=== PATIENT | male | born 1980 | race Caucasian/White ===

== ENCOUNTER 2018-04-12 01:44 | Emergency (ER) | payer BC ==
--- NOTE | 2018-04-12 01:48 | EDM.PDOC ---
ED HPI GENERAL MEDICAL PROBLEM - General Chief Complaint: ENT Problem Stated Complaint: sore throat Time Seen by Provider: 04/12/18 01:47 Source of Information: Reports: Patient - History of Present Illness INITIAL COMMENTS - FREE TEXT/NARRATIVE: HISTORY AND PHYSICAL: History of present illness: [patient present with sore throat since saturday able to speak clearly , nad, no stridor, no muffled voice drooling or trismus ] Review of systems: As per history of present illness and below otherwise all systems reviewed and negative. Past medical history: As per history of present illness and as reviewed below otherwise noncontributory. Surgical history: As per history of present illness and as reviewed below otherwise noncontributory. Social history: No reported history of drug or alcohol abuse. Family history: As per history of present illness and as reviewed below otherwise noncontributory. Physical exam: HEENT: Atraumatic, normocephalic, pupils reactive, negative for conjunctival pallor or scleral icterus, mucous membranes moist, neck supple, nontender, trachea midline.moderate swelling and likely abcess noted Lungs: Clear to auscultation, breath sounds equal bilaterally, chest nontender. Heart: S1S2, regular, negative for clicks, rubs, or JVD. Abdomen: Soft, nondistended, nontender. Negative for masses or hepatosplenomegaly. Negative for costovertebral tenderness. Pelvis: Stable nontender. Genitourinary: Deferred. Rectal: Deferred. Extremities: Atraumatic, negative for cords or calf pain. Neurovascular unremarkable. Neuro: Awake, alert, oriented. Cranial nerves II through XII unremarkable. Cerebellum unremarkable. Motor and sensory unremarkable throughout. Exam nonfocal. Diagnostics: [cbc, cmp ua strep influenza blood cx x 2 ] Therapeutics: [NS vancomycin 1 g cleocin 300mg iv ms 2 mg IV decadron 10mg IV ] Impression: b/l peritonsillar abscess ] Definitive disposition and diagnosis as appropriate pending reevaluation and review of above. throat Pain Score (Numeric/FACES): 9 - Related Data Allergies Allergy/AdvReac Type Severity Reaction Status Date / Time Penicillins Allergy Hives Verified 04/12/18 01:53 Home Meds: Home Meds . [No Known Home Meds] 02/11/18 [History] Past Medical History - Past Health History Medical/Surgical History: Denies Medical/Surgical History - Infectious Disease History Infectious Disease History: Reports: None Social & Family History - Family History Family Medical History: Noncontributory - Caffeine Use Caffeine Use: Reports: Coffee ED ROS GENERAL - Review of Systems Review Of Systems: See Below ED EXAM, GENERAL - Physical Exam Exam: See Below Course - Vital Signs Last Recorded V/S: Last Vital Signs Temp 98.9 F 04/12/18 04:20 Pulse 96 04/12/18 04:20 Resp 18 04/12/18 04:20 BP 136/79 04/12/18 04:20 Pulse Ox 97 04/12/18 04:20 - Orders/Labs/Meds Orders: Active Orders 24 hr Category Date Time Status CULTURE BLOOD [] Stat Lab 04/12/18 02:40 Received CULTURE BLOOD [] Stat Lab 04/12/18 02:45 Received CULTURE STREP A CONFIRMATION [] Stat Lab 04/12/18 01:55 Results STREP SCRN A RAPID W CULT CONF [] Stat Lab 04/12/18 01:55 Results Clindamycin Phosphate [Cleocin] 300 mg Med 04/12/18 04:06 Active Sodium Chloride 0.9% [Normal Saline] 50 ml IV ONETIME Clindamycin Phosphate in D5W [Cleocin in D5W] 300 mg Med 04/12/18 04:11 Active Premix Bag 1 bag IV ONETIME Sodium Chloride 0.9% [Normal Saline] 1,000 ml Med 04/12/18 04:30 Active IV STAT Vancomycin [Vancocin] 1 gm Med 04/12/18 04:06 Active Sodium Chloride 0.9% [Normal Saline] 250 ml IV ONETIME Blood Culture x2 Reflex Set [OM.PC] Stat Oth 04/12/18 02:30 Ordered Medication Orders Clindamycin Phosphate 300 mg/ (Sodium Chloride) 52 mls @ 100 mls/hr IV ONETIME ONE Stop: 04/12/18 04:37 Last Admin: 04/12/18 04:17 Dose: Not Given Vancomycin HCl 1 gm/ Sodium (Chloride) 250 mls @ 250 mls/hr IV ONETIME ONE Stop: 04/12/18 05:05 Last Admin: 04/12/18 04:16 Dose: 250 mls/hr Clindamycin Phosphate 300 mg/ (Premix) 50 mls @ 150 mls/hr IV ONETIME ONE Stop: 04/12/18 04:30 Sodium Chloride (Normal Saline) 1,000 mls @ 125 mls/hr IV STAT LIU Last Admin: 04/12/18 04:24 Dose: 125 mls/hr Labs: Laboratory Tests 04/12/18 04/12/18 04/12/18 Range/Units 02:30 02:40 02:40 WBC 16.89 H (4.0-11.0) K/uL RBC 4.84 (4.50-5.90) M/uL Hgb 14.0 (13.0-17.0) g/dL Hct 42.8 (38.0-50.0) % MCV 88.4 (80.0-98.0) fL MCH 28.9 (27.0-32.0) pg MCHC 32.7 (31.0-37.0) g/dL RDW Std Deviation 40.8 (28.0-62.0) fl RDW Coeff of Geo 13 (11.0-15.0) % Plt Count 256 (150-400) K/uL MPV 9.90 (7.40-12.00) fL Neut % (Auto) 84.6 H (48.0-80.0) % Lymph % (Auto) 7.2 L (16.0-40.0) % [place] % (Auto) 7.7 (0.0-15.0) % Eos % (Auto) 0.4 (0.0-7.0) % Baso % (Auto) 0.1 (0.0-1.5) % Neut # (Auto) 14.3 H (1.4-5.7) K/uL Lymph # (Auto) 1.2 (0.6-2.4) K/uL [place] # (Auto) 1.3 H (0.0-0.8) K/uL Eos # (Auto) 0.1 (0.0-0.7) K/uL Baso # (Auto) 0.0 (0.0-0.1) K/uL Sodium 135 L (136-148) mmol/L Potassium 4.4 (3.5-5.1) mmol/L Chloride 100 (98-107) mmol/L Carbon Dioxide 29.5 (21.0-32.0) mmol/L BUN 15 (7.0-18.0) mg/dL Creatinine 0.9 (0.8-1.3) mg/dL Est Cr Clr Drug Dosing 114.91 mL/min Estimated GFR (MDRD) > 60.0 ml/min Glucose 118 H (74-106) mg/dL Calcium 9.2 (8.5-10.1) mg/dL Total Bilirubin 0.6 (0.2-1.0) mg/dL AST 17 (15-37) IU/L ALT 18 (14-63) IU/L Alkaline Phosphatase 64 (46-116) U/L Total Protein 7.9 (6.4-8.2) g/dL Albumin 3.6 (3.4-5.0) g/dL Globulin 4.3 H (2.6-4.0) g/dL Albumin/Globulin Ratio 0.8 L (0.9-1.6) Urine Color YELLOW Urine Appearance CLEAR Urine pH 5.5 (5.0-8.0) Ur Specific [place] >= 1.030 (1.001-1.035) Urine Protein NEGATIVE (NEGATIVE) mg/dL Urine Glucose (UA) NEGATIVE (NEGATIVE) mg/dL Urine Ketones 40 H (NEGATIVE) mg/dL Urine Occult Blood NEGATIVE (NEGATIVE) Urine Nitrite NEGATIVE (NEGATIVE) Urine Bilirubin NEGATIVE (NEGATIVE) Urine Urobilinogen 0.2 (<2.0) EU/dL Ur Leukocyte Esterase NEGATIVE (NEGATIVE) Meds: Medications Generic Name Dose Route Start Last Admin Trade Name Freq PRN Reason Stop Dose Admin Clindamycin Phosphate 300 mg/ 52 mls @ 100 mls/hr 04/12/18 04:06 04/12/18 04: 17 Sodium Chloride IV 04/12/18 04:37 Not Given ONETIME ONE Vancomycin HCl 1 gm/ Sodium 250 mls @ 250 mls/hr 04/12/18 04:06 04/12/18 04: 16 Chloride IV 04/12/18 05:05 250 mls/hr ONETIME ONE Administration Clindamycin Phosphate 300 mg/ 50 mls @ 150 mls/hr 04/12/18 04:11 Premix IV 04/12/18 04:30 ONETIME ONE Sodium Chloride 1,000 mls @ 125 mls/hr 04/12/18 04:30 04/12/18 04:24 Normal Saline IV 125 mls/hr STAT LIU Administration Discontinued Medications Generic Name Dose Route Start Last Admin Trade Name Reginald PRN Reason Stop Dose Admin Sodium Chloride 1,000 mls @ 999 mls/hr 04/12/18 02:30 04/12/18 02:42 Normal Saline IV 04/12/18 03:30 999 mls/hr STAT ONE Administration Clindamycin Phosphate Confirm 04/12/18 04:10 04/12/18 04:16 Cleocin In D5w Administered 04/12/18 04:11 Not Given Dose 50 mls @ as directed IV .STK-MED ONE Iopamidol 100 ml 04/12/18 03:31 04/12/18 03:52 Isovue-370 (76%) IVPUSH 04/12/18 03:32 100 ml ONETIME ONE Administration Morphine Sulfate 2 mg 04/12/18 04:23 04/12/18 04:27 Morphine IVPUSH 04/12/18 04:24 2 mg ONETIME ONE Administration Departure - Departure Time of Disposition: 04:30 Disposition: DC/Tfer to Acute Hospital 02 Condition: Fair Clinical Impression: Peritonsillar abscess - Discharge Information Referrals: PCP,None [Primary Care Provider] - Forms: ED Department Discharge - My Orders Last 24 Hours: My Active Orders 04/12/18 01:55 CULTURE STREP A CONFIRMATION [RM] Stat STREP SCRN A RAPID W CULT CONF [RM] Stat 04/12/18 02:30 Blood Culture x2 Reflex Set [OM.PC] Stat 04/12/18 02:40 CULTURE BLOOD [BC] Stat 04/12/18 02:45 CULTURE BLOOD [BC] Stat 04/12/18 04:06 Clindamycin Phosphate [Cleocin] 300 mg Sodium Chloride 0.9% [Normal Saline] 50 ml IV ONETIME Vancomycin [Vancocin] 1 gm Sodium Chloride 0.9% [Normal Saline] 250 ml IV ONETIME 04/12/18 04:11 Clindamycin Phosphate in D5W [Cleocin in D5W] 300 mg Premix Bag 1 bag IV ONETIME 04/12/18 04:30 Sodium Chloride 0.9% [Normal Saline] 1,000 ml IV STAT - Assessment/Plan Last 24 Hours: My Active Orders 04/12/18 01:55 CULTURE STREP A CONFIRMATION [RM] Stat STREP SCRN A RAPID W CULT CONF [RM] Stat 04/12/18 02:30 Blood Culture x2 Reflex Set [OM.PC] Stat 04/12/18 02:40 CULTURE BLOOD [BC] Stat 04/12/18 02:45 CULTURE BLOOD [BC] Stat 04/12/18 04:06 Clindamycin Phosphate [Cleocin] 300 mg Sodium Chloride 0.9% [Normal Saline] 50 ml IV ONETIME Vancomycin [Vancocin] 1 gm Sodium Chloride 0.9% [Normal Saline] 250 ml IV ONETIME 04/12/18 04:11 Clindamycin Phosphate in D5W [Cleocin in D5W] 300 mg Premix Bag 1 bag IV ONETIME 04/12/18 04:30 Sodium Chloride 0.9% [Normal Saline] 1,000 ml IV STAT
[2018-04-12] MEDS ORDERED: Sodium Chloride 0.9% 1,000 ML IV ONE (02:30)
[2018-04-12 03:22] LABS: CHLORIDE,CL 100 mmol/L (98-107); SODIUM,NA 135 mmol/L (136-148)
[2018-04-12] MEDS ORDERED: Iopamidol 755 Mg/ML 100 ML Bottle IVPUSH ONE (03:31)
[2018-04-12] MEDS ORDERED: Clindamycin Phosphate in D5W 50 ML IV ONE (04:10)
[2018-04-12] MEDS ORDERED: Clindamycin Phosphate in D5W 300 MG in Premix Bag 1 BAG IV ONE ×2 (04:11)
[2018-04-12] MEDS ORDERED: Morphine 2 MG/ML Syringe IVPUSH ONE (04:23)
--- NOTE | 2018-04-12 04:24 | CT ---
INDICATION: Pain and swelling TECHNIQUE: CT soft tissue of the neck was acquired with 100 cc Isovue 370 intravenous contrast. COMPARISON: None FINDINGS: The skullbase is unremarkable. Note is made of mucosal thickening within the paranasal sinuses and the orbits are within normal limits. Parotid and submandibular glands are unremarkable. There is prominent bilateral tonsillar swelling which is causing moderate to severe narrowing of the oropharynx with some fluid in the oropharynx. There is a rim enhancing hypodense collection within the right tonsil measuring 16 x 8 x 10 millimeters and at the left tonsil measuring 18 x 8 x 17 millimeters. There is mild adjacent fat stranding which extends into the submandibular regions. Prominent enlarged jugular lymph nodes, largest measuring 14 millimeters at level 2 on the left, presumed reactive. Lung apices are unremarkable. Thyroid gland unremarkable. Jugular veins widely patent bilaterally. IMPRESSION: Prominent tonsillar enlargement causing moderate to severe narrowing of the oropharynx with bilateral peritonsillar abscesses measuring up to 16 millimeters on the right and 18 millimeters on the left. Please note that all CT scans at this facility use dose modulation, iterative reconstruction, and/or weight-based dosing when appropriate to reduce radiation dose to as low as reasonably achievable. Dictated by Yahir Mcpherson MD @ Apr 12 2018 4:16AM Signed by Dr. Yahir Mcpherson @ Apr 12 2018 4:21AM
[2018-04-12] MEDS ORDERED: Sodium Chloride 0.9% 1,000 ML IV SCH (04:30)
[2018-04-12] MEDS ORDERED: Dexamethasone 10 MG/ML SDV IVPUSH ONE (04:52)
== END 2018-04-12 05:20 ==
LOC: MW.ED 01:44
DX: J36 Peritonsillar abscess (principal); Z88.0 Allergy status to penicillin
CPT/HCPCS: 36415; 70491; 80053; 81003; 85025; 87040; 87081; 87804; 87880; 96361; 96365; 96368; 96375; 99285; J1100; J2270; J3370; J3490; J7040; J7050; Q9967; 99283

== ENCOUNTER 2020-09-08 09:37 | Inpatient (IN) | payer BC ==
[2020-09-08] MEDS ORDERED: Sodium Chloride 0.9% 2.5 ML Syringe FLUSH PRN ×2 (10:10→13:00)
[2020-09-08] MEDS ORDERED: Sodium Chloride 0.9% 10 ML Syringe FLUSH PRN (10:10)
[2020-09-08] MEDS ORDERED: cefTRIAXone 1 GM in Premix Bag 1 BAG IV ONE (10:10)
--- NOTE | 2020-09-08 10:16 | EDM.PDOC ---
ED HPI GENERAL MEDICAL PROBLEM - General Chief Complaint: Skin Complaint Stated Complaint: POISON ENA Time Seen by Provider: 09/08/20 09:55 Source of Information: Reports: Patient History Limitations: Reports: No Limitations - History of Present Illness INITIAL COMMENTS - FREE TEXT/NARRATIVE: HISTORY AND PHYSICAL: History of present illness: Patient is a 40-year-old male who presents to the emergency room with complaints of a rash to his lower extremities and torso. Approximately 3 weeks ago he was hiking in the [facility] with his brother in [place]. A few days after his brother had called him stating that he had a rash to his lower legs and believed it was poison ena. Patient also noted a rash to his left posterior calf and right knee, which since has progressively gotten worse. The rash has now spread from the right kneecap to the majority of the anterior right leg from mid knight to groin with a honey crusted lesion to the kneecap. He has been using OTC Benadryl and He did go to [facility] on 09[facility]. He states that they gave him a shot of steroid and encouraged him to continue using Benadryl and [id number] hydrocortisone cream. After receiving the injection he feels that the rash has now spread to his anterior and posterior trunk, diffuse. The rash spares his feet, groin/haresh-area, glutes and bilateral arms. Patient denies any fever, chills, headache, change in vision, syncope or near syncope. Denies any chest pain, back pain, shortness of breath or cough. Denies any abdominal pain, nausea, vomiting, diarrhea, constipation or dysuria. Has not noted any blood in urine or stool. Patient has been eating and drinking appropriately. Review of systems: As per history of present illness and below otherwise all systems reviewed and negative. Past medical history: As per history of present illness and as reviewed below otherwise noncontributory. Surgical history: As per history of present illness and as reviewed below otherwise noncontributory. Social history: See social history for further information Family history: As per history of present illness and as reviewed below otherwise noncontributory. Physical exam: General: Well developed and well nourished. Alert and orientated x 3. Nontoxic in appearance and in no acute distress. Vital signs are stable and have been reviewed by me. Nursing notes were reviewed. HEENT: Atraumatic, normocephalic, pupils equal and reactive bilaterally, negative for conjunctival pallor or scleral icterus, mucous membranes moist, TMs normal bilaterally, throat clear, neck supple, nontender, trachea midline. No drooling or trismus noted. No meningeal signs. No hot potato voice noted. Lungs: Clear to auscultation bilaterally. No wheezes, rales, or rhonchi. Chest nontender. Normal work of breathing, no accessory muscles used. Heart: S1S2, regular rate and rhythm without overt murmur, gallops, or rubs. No JVD. No peripheral edema Abdomen: Soft, nondistended, nontender. Normoactive bowel sounds. Negative for masses or costovertebral tenderness. Skin: Diffuse pin point erythema rash noted to trunk; scattered. Primary lesion right knee; fluid filled blister with honey crusted drainage around site. Surrounding erythema with diffuse rash to right anterior knee going down the knight (stops at ankle) and goes up to inner groin. Erythematic with diffuse rash to left posterior calf. Upper extremities are intact, warm, dry. No lesions or rashes noted. Hematologic: No petechiae or purpra. Mucosa appropriate color and normal nail bed color and refill. Extremities: Atraumatic, moves all extremities per self without difficulty or deficits. His left leg is slightly larger than the left, negative for cords or calf pain bilaterally. Neurovascular unremarkable. Neuro: Awake, alert, oriented. Cranial nerves II through XII unremarkable. Cerebellum unremarkable. Motor and sensory unremarkable throughout. Exam nonfocal. Psychiatric: Mood and affect are appropriate. Normal thought process. Answering questions appropriately. Notes: *This patient was seen and evaluated during the 2019 SARS-CoV-2 novel coronavirus pandemic period. Community viral transmission is ongoing at time of this encounter and the emergency department is operating under pandemic response procedures. Patient is a 40-year-old male who presents to the emergency room with concerns of poison ena rash x3 weeks. Patient states initially started on his legs but has progressively gotten worse. States the area is itchy, denies any pain. Was seen at the walk-in clinic on 09/05/2020 and given a steroid shot. Shortly after the rash is now spread to his trunk. The longevity of the rash is unusual also the pattern now spreading to his abdomen is peculiar. Dr Kerns was involved in this case and assisted with plan of care. We will do basic lab work and an ultrasound of the right leg as it does appear to be semi-swollen. Lab work is within normal limits. Venous US shows a normal ultrasound of the right lower extremity veins. With patient's presentation, length of symptoms and physical exam - I feel patient will benefit with IV abx and further care/management for possible superimposed skin infection. Patient is agreeable to plan of care. Consulted Dr Allen who is agreeable to keeping patient for further care and management. I have talked with the patient about today's findings, in addition to providing specific details for plan of care. Reassessment at the time of disposition demonstrates that the patient is in no acute distress. Diagnostics: CBC, CMP, UA, RPR, COVID, INR, BC x 2, Lactate Therapeutics: IV fluids, Benadryl, Solu-Medrol, Vancomycin, Rocephin Impression: Cellulitis Contact dermatitis Plan: Inpatient admission to Med/Surg Definitive disposition and diagnosis as appropriate pending reevaluation and review of above. Body Pain Score (Numeric/FACES): 8 - Related Data Allergies Allergy/AdvReac Type Severity Reaction Status Date / Time Penicillins Allergy Hives Verified 04/12/18 01:53 Home Meds: Home Meds . [No Known Home Meds] 02/11/18 [History] Past Medical History - Past Health History Medical/Surgical History: Denies Medical/Surgical History Musculoskeletal History: Reports: None - Infectious Disease History Infectious Disease History: Reports: None - Past Surgical History Musculoskeletal Surgical History: Reports: Other (See Below) Other Musculoskeletal Surgeries/Procedures:: right hand Social & Family History - Family History Family Medical History: No Pertinent Family History Hematologic: Reports: None - Tobacco Use Tobacco Use Status *Q: Never Tobacco User - Caffeine Use Caffeine Use: Reports: None - Recreational Drug Use Recreational Drug Use: No ED ROS GENERAL - Review of Systems Review Of Systems: Comprehensive ROS is negative, except as noted in HPI. ED EXAM, SKIN/RASH Exam: See Below (See dictation) Course - Vital Signs Last Recorded V/S: Last Vital Signs Temp 97.2 F 09/08/20 10:09 Pulse 82 09/08/20 10:09 Resp 18 09/08/20 10:09 BP 150/104 H 09/08/20 10:09 Pulse Ox 96 09/08/20 10:09 - Orders/Labs/Meds Orders: Active Orders 24 hr Category Date Time Status CULTURE BLOOD [BC] Stat Lab 09/08/20 10:25 Received CULTURE BLOOD [BC] Stat Lab 09/08/20 10:52 Received RPR (SYPHILIS SERO) W/ RFLX [REF] Stat Lab 09/08/20 10:25 Received UA RFX NETTA AND CULT IF INDIC [URIN] Stat Lab 09/08/20 10:10 Ordered Vancomycin 1 gm Med 09/08/20 10:15 Active Sodium Chloride 0.9% [Normal Saline (AdvBag)] 250 ml IV Q12H Blood Culture x2 Reflex Set [OM.PC] Stat Oth 09/08/20 10:10 Ordered Medication Orders Acetaminophen (Acetaminophen 325 Mg Tab) 650 mg PO Q4H PRN PRN Reason: Pain (Mild 1-3)/fever Diphenhydramine HCl (Diphenhydramine 25 Mg Cap) 25 mg PO Q4H PRN PRN Reason: Itching Hydrocortisone (Hydrocortisone 1% Crm 30 Gm Tube) 0 gm TOP Q12HR PRN PRN Reason: Itching Vancomycin HCl 1 gm/ Sodium (Chloride) 250 mls @ 166 mls/hr IV Q12H LIU Last Admin: 09/08/20 11:00 Dose: 166 mls/hr Documented by: JOSEPH Ceftriaxone Sodium/Dextrose 1 (gm/ Premix) 50 mls @ 100 mls/hr IV Q24H LIU Ondansetron HCl (Ondansetron 4 Mg/2 Ml Sdv) 4 mg IVPUSH Q4H PRN PRN Reason: Nausea Sodium Chloride (Sodium Chloride 0.9% 2.5 Ml Syringe) 2.5 ml FLUSH ASDIRECTED PRN PRN Reason: Keep Vein Open Vancomycin HCl (Pharmacy To Dose - Vancomycin) 1 dose .XX ASDIRECTED [facility] Labs: Laboratory Tests 09/08/20 09/08/20 09/08/20 Range/Units 10:25 10:25 10:25 WBC 9.34 (4.0-11.0) K/uL RBC 5.27 (4.50-5.90) M/uL Hgb 15.2 (13.0-17.0) g/dL Hct 45.4 (38.0-50.0) % MCV 86.1 (80.0-98.0) fL MCH 28.8 (27.0-32.0) pg MCHC 33.5 (31.0-37.0) g/dL RDW Std Deviation 40.8 (28.0-62.0) fl RDW Coeff of Geo 13 (11.0-15.0) % Plt Count 308 (150-400) K/uL MPV 9.50 (7.40-12.00) fL Neut % (Auto) 69.5 (48.0-80.0) % Lymph % (Auto) 16.4 (16.0-40.0) % [place] % (Auto) 6.3 (0.0-15.0) % Eos % (Auto) 7.5 H (0.0-7.0) % Baso % (Auto) 0.3 (0.0-1.5) % Neut # (Auto) 6.5 H (1.4-5.7) K/uL Lymph # (Auto) 1.5 (0.6-2.4) K/uL [place] # (Auto) 0.6 (0.0-0.8) K/uL Eos # (Auto) 0.7 (0.0-0.7) K/uL Baso # (Auto) 0.0 (0.0-0.1) K/uL Nucleated RBC % 0.0 /100WBC Nucleated RBCs # 0 K/uL INR 1.11 Sodium 138 (136-148) mmol/L Potassium 4.5 (3.5-5.1) mmol/L Chloride 103 (98-107) mmol/L Carbon Dioxide 31.4 (21.0-32.0) mmol/L BUN 13 (7.0-18.0) mg/dL Creatinine 1.2 (0.8-1.3) mg/dL Est Cr Clr Drug Dosing 84.49 mL/min Estimated GFR (MDRD) > 60.0 ml/min Glucose 101 (74-106) mg/dL Lactic Acid (0.4-2.0) mmol/L Calcium 8.9 (8.5-10.1) mg/dL Total Bilirubin 0.4 (0.2-1.0) mg/dL AST 23 (15-37) IU/L ALT 30 (14-63) IU/L Alkaline Phosphatase 72 (46-116) U/L Total Protein 7.3 (6.4-8.2) g/dL Albumin 3.6 (3.4-5.0) g/dL Globulin 3.7 (2.6-4.0) g/dL Albumin/Globulin Ratio 1.0 (0.9-1.6) SARS-CoV-2 RNA (GABRIELA) (NEGATIVE) 09/08/20 09/08/20 Range/Units 10:25 11:25 WBC (4.0-11.0) K/uL RBC (4.50-5.90) M/uL Hgb (13.0-17.0) g/dL Hct (38.0-50.0) % MCV (80.0-98.0) fL MCH (27.0-32.0) pg MCHC (31.0-37.0) g/dL RDW Std Deviation (28.0-62.0) fl RDW Coeff of Geo (11.0-15.0) % Plt Count (150-400) K/uL MPV (7.40-12.00) fL Neut % (Auto) (48.0-80.0) % Lymph % (Auto) (16.0-40.0) % [place] % (Auto) (0.0-15.0) % Eos % (Auto) (0.0-7.0) % Baso % (Auto) (0.0-1.5) % Neut # (Auto) (1.4-5.7) K/uL Lymph # (Auto) (0.6-2.4) K/uL [place] # (Auto) (0.0-0.8) K/uL Eos # (Auto) (0.0-0.7) K/uL Baso # (Auto) (0.0-0.1) K/uL Nucleated RBC % /100WBC Nucleated RBCs # K/uL INR Sodium (136-148) mmol/L Potassium (3.5-5.1) mmol/L Chloride (98-107) mmol/L Carbon Dioxide (21.0-32.0) mmol/L BUN (7.0-18.0) mg/dL Creatinine (0.8-1.3) mg/dL Est Cr Clr Drug Dosing mL/min Estimated GFR (MDRD) ml/min Glucose (74-106) mg/dL Lactic Acid 1.0 (0.4-2.0) mmol/L Calcium (8.5-10.1) mg/dL Total Bilirubin (0.2-1.0) mg/dL AST (15-37) IU/L ALT (14-63) IU/L Alkaline Phosphatase (46-116) U/L Total Protein (6.4-8.2) g/dL Albumin (3.4-5.0) g/dL Globulin (2.6-4.0) g/dL Albumin/Globulin Ratio (0.9-1.6) SARS-CoV-2 RNA (GABRIELA) NEGATIVE (NEGATIVE) Meds: Medications Generic Name Dose Route Start Last Admin Trade Name Freq PRN Reason Stop Dose Admin Acetaminophen 650 mg 09/08/20 12:58 Acetaminophen 325 Mg Tab PO Q4H PRN Pain (Mild 1-3)/fever Diphenhydramine HCl 25 mg 09/08/20 12:58 Diphenhydramine 25 Mg Cap PO Q4H PRN Itching Hydrocortisone 0 gm 09/08/20 13:30 Hydrocortisone 1% Crm 30 Gm Tube TOP Q12HR PRN Itching Vancomycin HCl 1 gm/ Sodium 250 mls @ 166 mls/hr 09/08/20 10:15 09/08/20 11:00 Chloride IV 166 mls/hr Q12H LIU Administration Ceftriaxone Sodium/Dextrose 1 50 mls @ 100 mls/hr 09/09/20 10:00 gm/ Premix IV Q24H LIU Ondansetron HCl 4 mg 09/08/20 12:58 Ondansetron 4 Mg/2 Ml Sdv IVPUSH Q4H PRN Nausea Sodium Chloride 2.5 ml 09/08/20 13:00 Sodium Chloride 0.9% 2.5 Ml Syringe FLUSH ASDIRECTED PRN Keep Vein Open Vancomycin HCl 1 dose 09/08/20 13:15 Pharmacy To Dose - Vancomycin .XX ASDIRECTED LIU Discontinued Medications Generic Name Dose Route Start Last Admin Trade Name Freq PRN Reason Stop Dose Admin Diphenhydramine HCl 50 mg 09/08/20 10:20 09/08/20 11:01 Diphenhydramine 50 Mg/Ml Sdv IVPUSH 09/08/20 10:21 50 mg ONETIME ONE Administration Ceftriaxone Sodium/Dextrose 1 50 mls @ 100 mls/hr 09/08/20 10:10 09/08/20 10:59 gm/ Premix IV 09/08/20 10:39 100 mls/hr ONETIME ONE Administration Methylprednisolone Sodium Succinate 125 mg 09/08/20 10:20 09/08/20 11:01 Methylprednisolone Sodium Succinate 125 Mg/2 Ml Sdv IVPUSH 09/08/20 10:21 125 mg ONETIME ONE Administration Sodium Chloride 10 ml 09/08/20 10:10 09/08/20 11:06 Sodium Chloride 0.9% 10 Ml Syringe FLUSH 10 ml ASDIRECTED PRN Administration Keep Vein Open Sodium Chloride 2.5 ml 09/08/20 10:10 09/08/20 11:05 Sodium Chloride 0.9% 2.5 Ml Syringe FLUSH 2.5 ml ASDIRECTED PRN Administration Keep Vein Open Departure - Departure Time of Disposition: 13:37 Disposition: Admitted As Inpatient 66 Clinical Impression: Contact dermatitis and eczema due to plant Cellulitis Qualifiers: Site of cellulitis: extremity Site of cellulitis of extremity: lower extremity Laterality: right Qualified Code(s): L03.115 - Cellulitis of right lower limb - Discharge Information Sepsis Event Note (ED) - Evaluation Sepsis Screening Result: No Definite Risk - Focused Exam Vital Signs: Vital Signs Temp Pulse Resp BP Pulse Ox 09/08/20 10:09 97.2 F 82 18 150/104 H 96 - My Orders Last 24 Hours: My Active Orders 09/08/20 10:10 UA RFX NETTA AND CULT IF INDIC [URIN] Stat Blood Culture x2 Reflex Set [OM.PC] Stat 09/08/20 10:15 Vancomycin 1 gm Sodium Chloride 0.9% [Normal Saline (AdvBag)] 250 ml IV Q12H 09/08/20 10:25 CULTURE BLOOD [BC] Stat RPR (SYPHILIS SERO) W/ RFLX [REF] Stat 09/08/20 10:52 CULTURE BLOOD [BC] Stat - Assessment/Plan Last 24 Hours: My Active Orders 09/08/20 10:10 UA RFX NETTA AND CULT IF INDIC [URIN] Stat Blood Culture x2 Reflex Set [OM.PC] Stat 09/08/20 10:15 Vancomycin 1 gm Sodium Chloride 0.9% [Normal Saline (AdvBag)] 250 ml IV Q12H 09/08/20 10:25 CULTURE BLOOD [BC] Stat RPR (SYPHILIS SERO) W/ RFLX [REF] Stat 09/08/20 10:52 CULTURE BLOOD [BC] Stat
[2020-09-08] MEDS ORDERED: methylPREDNISolone Sodium Succinate 125 MG/2 ML SDV IVPUSH ONE (10:20)
[2020-09-08] MEDS ORDERED: diphenhydrAMINE 50 MG/ML SDV IVPUSH ONE (10:20)
[2020-09-08 10:56] LABS: BLOOD UREA NITROGEN,BUN 13 mg/dL (7.0-18.0); CARBON DIOXIDE,CO2 31.4 mmol/L (21.0-32.0); CHLORIDE,CL 103 mmol/L (98-107); GLUCOSE RANDOM 101 mg/dL (74-106); POTASSIUM,K 4.5 mmol/L (3.5-5.1); SODIUM,NA 138 mmol/L (136-148)
--- NOTE | 2020-09-08 11:21 | US ---
INDICATION: rash rt leg, blistering on knee, swelling TECHNIQUE: Ultrasound venous duplex right lower extremity. COMPARISON: None. FINDINGS: The right common femoral, superficial femoral, deep femoral, popliteal, posterior tibial, and greater saphenous veins are fully compressible with normal waveforms. IMPRESSION: Normal ultrasound of the right lower extremity veins. Dictated by: Kevin Francois MD @ 09/08/2020 11:20:30 (Electronically Signed)
[2020-09-08] MEDS ORDERED: Ondansetron 4 MG/2 ML SDV IVPUSH PRN (12:58)
[2020-09-08] MEDS ORDERED: Acetaminophen 325 MG Tab PO PRN (12:58)
[2020-09-08] MEDS ORDERED: diphenhydrAMINE 25 MG Cap PO PRN (12:58)
--- NOTE | 2020-09-08 13:16 | PCM.HP.2 ---
H&P History of Present Illness - General Date of Service: 09/08/20 Admit Problem/Dx: Admission Diagnosis/Problem Admission Diagnosis/Problem Cellulitis - History of Present Illness Initial Comments - Free Text/Narative: This 40-year-old male with little significant past medical history presented to the ER with complaints of skin rash on his lower extremities that extends up to his abdomen. He reports that he was hiking in the [facility] to weeks ago approximately with his brother and their families. He reports that him and his brother were climbing a river bank to obtain shoe that was thrown and may have come in contact with poison jenny or stinging tj. He reports that a few days after this his brother called him stating that he had noticed a rash to his lower legs and believed it would be from poison jenny. At that time the patient then noticed that he did have a left rash on his left posterior calf and right knee which has since progressively worsened. He reports that the ri ght knee has spread to cover the entire knee along with proximal and distal spreading with erythema. Denies any tick bite, insect or animal bite within these areas. He reports that he has been taking [id number] Benadryl and that he did go to the walk-in clinic on 09/05/2020 where he was given order steroid injection with encouragement to continue Benadryl and topical hydrocortisone. He reports after this the rash spread to his trunk posterior and anteriorly but sparing groin and genitals. He reports that he has a couple erythematous spots located on the tops of his feet that are quite itchy. He reports that the area on his right knee has slowly blistered and crusted over. He denies any systemic symptoms such as fevers chills myalgias rigors no neck pain. He denies any back pain shortness of breath palpitations or cough. He denies any abdominal pain nausea vomiting or diarrhea. He denies any black or bloody bowel movements. He denies ever having a thing like this in the past. Denies any history of allergies that he is aware of besides penicillins. He reports that he chews half a tin of tobacco daily no smoking tobacco, rare social alcohol use and no recreational drug use. 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 In the ER no leukocytosis noted. Eosinophil percentage elevated 7.5. INR 1.11. BMP within normal limits glucose normal Covid swab negative. Venous Doppler of right lower extremity obtained which is negative. In the ER he was treated with Solu-Medrol Benadryl and IV fluids. He was also treated with Rocephin and vancomycin for possible superimposed bacterial infection. Patient to be admitted with suspected cellulitis secondary to superimposed bacterial infection from contact dermatitis likely from a plant. Body Pain Score (Numeric/FACES): 8 - Related Data Allergies/Adverse Reactions: Allergies Allergy/AdvReac Type Severity Reaction Status Date / Time Penicillins Allergy Hives Verified 04/12/18 01:53 Home Medications: Home Meds . [No Known Home Meds] 02/11/18 [History] Past Medical History - Past Health History Medical/Surgical History: Denies Medical/Surgical History Musculoskeletal History: Reports: None - Infectious Disease History Infectious Disease History: Reports: None - Past Surgical History Musculoskeletal Surgical History: Reports: Other (See Below) Other Musculoskeletal Surgeries/Procedures:: right hand Social & Family History - Family History Family Medical History: No Pertinent Family History (Patient adopted has no available information regarding family history.) Hematologic: Reports: None - Tobacco Use Tobacco Use Status *Q: Never Tobacco User - Caffeine Use Caffeine Use: Reports: None - Recreational Drug Use Recreational Drug Use: No H&P Review of Systems - Review of Systems: Review Of Systems: See Below General: Reports: No Symptoms. Denies: Fever, Chills, Malaise HEENT: Reports: No Symptoms. Denies: Headaches, Sinus Congestion, Sore Throat, Vertigo Pulmonary: Reports: No Symptoms. Denies: Shortness of Breath, Wheezing Cardiovascular: Reports: No Symptoms. Denies: Chest Pain, Edema Gastrointestinal: Reports: No Symptoms. Denies: Abdominal Pain, Constipation, Diarrhea, Nausea, Vomiting Genitourinary: Reports: No Symptoms. Denies: Dysuria, Frequency, Burning Musculoskeletal: Reports: No Symptoms Skin: Reports: Pruritis, Rash, Erythema, Urticaria Psychiatric: Reports: No Symptoms Neurological: Reports: No Symptoms Hematologic/Lymphatic: Reports: No Symptoms Immunologic: Reports: No Symptoms Exam - Exam Exam: See Below - Vital Signs Vital Signs: Last Vital Signs Temp 97.2 F 09/08/20 10:09 Pulse 82 09/08/20 10:09 Resp 18 09/08/20 10:09 BP 150/104 H 09/08/20 10:09 Pulse Ox 96 09/08/20 10:09 Weight: 113.398 kg - Exam General: Alert, Oriented, Cooperative HEENT: Conjunctiva Clear, Mucosa Moist & [place], Posterior Pharynx Clear Neck: Supple, Trachea Midline. No: Lymphadenopathy Lungs: Clear to Auscultation, Normal Respiratory Effort Cardiovascular: Regular Rate, Regular Rhythm GI/Abdominal Exam: Normal Bowel Sounds, Soft, Non-Tender Back Exam: Normal Inspection, Full Range of Motion Skin: Rash (Rash noted to anterior posterior trunk blanchable macules of varying sizes noted. This does extend down to right and left leg right greater than left. Sparing groin and genitals. Left leg has scattered macules noted with no blistering does have large plaque-like rash noted to posterior knee. ), Other (Right knee has significant amount of macules and located on patella patient has significant amount of pustules noted that are draining clear yellow fluid with significant bone of crusting. No purulence noted no fluctuance noted. Patient able to move joint but has tightness in skin, not joint pain) Neuro Extensive - Mental Status: Alert, Oriented x3, Normal Mood/Affect Neuro Extensive - Motor, Sensory, Reflexes: CN II-XII Intact Psychiatric: Alert, Normal Affect, Normal Mood - Patient Data Lab Results Last 24 hrs: Laboratory Results - last 24 hr 09/08/20 09/08/20 09/08/20 Range/Units 10:25 10:25 10:25 WBC 9.34 (4.0-11.0) K/uL RBC 5.27 (4.50-5.90) M/uL Hgb 15.2 (13.0-17.0) g/dL Hct 45.4 (38.0-50.0) % MCV 86.1 (80.0-98.0) fL MCH 28.8 (27.0-32.0) pg MCHC 33.5 (31.0-37.0) g/dL RDW Std Deviation 40.8 (28.0-62.0) fl RDW Coeff of Geo 13 (11.0-15.0) % Plt Count 308 (150-400) K/uL MPV 9.50 (7.40-12.00) fL Neut % (Auto) 69.5 (48.0-80.0) % Lymph % (Auto) 16.4 (16.0-40.0) % [place] % (Auto) 6.3 (0.0-15.0) % Eos % (Auto) 7.5 H (0.0-7.0) % Baso % (Auto) 0.3 (0.0-1.5) % Neut # (Auto) 6.5 H (1.4-5.7) K/uL Lymph # (Auto) 1.5 (0.6-2.4) K/uL [place] # (Auto) 0.6 (0.0-0.8) K/uL Eos # (Auto) 0.7 (0.0-0.7) K/uL Baso # (Auto) 0.0 (0.0-0.1) K/uL Nucleated RBC % 0.0 /100WBC Nucleated RBCs # 0 K/uL INR 1.11 Sodium 138 (136-148) mmol/L Potassium 4.5 (3.5-5.1) mmol/L Chloride 103 (98-107) mmol/L Carbon Dioxide 31.4 (21.0-32.0) mmol/L BUN 13 (7.0-18.0) mg/dL Creatinine 1.2 (0.8-1.3) mg/dL Est Cr Clr Drug Dosing 84.49 mL/min Estimated GFR (MDRD) > 60.0 ml/min Glucose 101 (74-106) mg/dL Lactic Acid (0.4-2.0) mmol/L Calcium 8.9 (8.5-10.1) mg/dL Total Bilirubin 0.4 (0.2-1.0) mg/dL AST 23 (15-37) IU/L ALT 30 (14-63) IU/L Alkaline Phosphatase 72 (46-116) U/L Total Protein 7.3 (6.4-8.2) g/dL Albumin 3.6 (3.4-5.0) g/dL Globulin 3.7 (2.6-4.0) g/dL Albumin/Globulin Ratio 1.0 (0.9-1.6) SARS-CoV-2 RNA (GABRIELA) (NEGATIVE) 09/08/20 09/08/20 Range/Units 10:25 11:25 WBC (4.0-11.0) K/uL RBC (4.50-5.90) M/uL Hgb (13.0-17.0) g/dL Hct (38.0-50.0) % MCV (80.0-98.0) fL MCH (27.0-32.0) pg MCHC (31.0-37.0) g/dL RDW Std Deviation (28.0-62.0) fl RDW Coeff of Geo (11.0-15.0) % Plt Count (150-400) K/uL MPV (7.40-12.00) fL Neut % (Auto) (48.0-80.0) % Lymph % (Auto) (16.0-40.0) % [place] % (Auto) (0.0-15.0) % Eos % (Auto) (0.0-7.0) % Baso % (Auto) (0.0-1.5) % Neut # (Auto) (1.4-5.7) K/uL Lymph # (Auto) (0.6-2.4) K/uL [place] # (Auto) (0.0-0.8) K/uL Eos # (Auto) (0.0-0.7) K/uL Baso # (Auto) (0.0-0.1) K/uL Nucleated RBC % /100WBC Nucleated RBCs # K/uL INR Sodium (136-148) mmol/L Potassium (3.5-5.1) mmol/L Chloride (98-107) mmol/L Carbon Dioxide (21.0-32.0) mmol/L BUN (7.0-18.0) mg/dL Creatinine (0.8-1.3) mg/dL Est Cr Clr Drug Dosing mL/min Estimated GFR (MDRD) ml/min Glucose (74-106) mg/dL Lactic Acid 1.0 (0.4-2.0) mmol/L Calcium (8.5-10.1) mg/dL Total Bilirubin (0.2-1.0) mg/dL AST (15-37) IU/L ALT (14-63) IU/L Alkaline Phosphatase (46-116) U/L Total Protein (6.4-8.2) g/dL Albumin (3.4-5.0) g/dL Globulin (2.6-4.0) g/dL Albumin/Globulin Ratio (0.9-1.6) SARS-CoV-2 RNA (GABRIELA) NEGATIVE (NEGATIVE) Result Diagrams: 09/08/20 10:25 09/08/20 10:25 Sepsis Event Note - Evaluation Sepsis Screening Result: No Definite Risk - Focused Exam Vital Signs: Vital Signs Temp Pulse Resp BP Pulse Ox 09/08/20 10:09 97.2 F 82 18 150/104 H 96 - Problem List (1) Contact dermatitis and eczema due to plant SNOMED Code(s): 292267136 ICD Code: L24.7 - IRRITANT CONTACT DERMATITIS DUE TO PLANTS, EXCEPT FOOD Status: Acute Current Visit: Yes (2) Cellulitis SNOMED Code(s): 675258202 ICD Code: L03.90 - CELLULITIS, UNSPECIFIED Status: Acute Current Visit: Yes (3) Tobacco abuse SNOMED Code(s): 542964141 ICD Code: Z72.0 - TOBACCO USE Status: Chronic Current Visit: Yes (4) Obesity SNOMED Code(s): 330827757, 075713221 ICD Code: E66.9 - OBESITY, UNSPECIFIED Status: Chronic Current Visit: Yes Problem List Initiated/Reviewed/Updated: Yes Orders Last 24hrs: Active Orders 24 hr Category Date Time Status Admission Status [Patient Status] [ADT] Stat ADT 09/08/20 11:33 Active Antiembolic Devices [RC] PER UNIT ROUTINE Care 09/08/20 13:00 Ordered Intake and Output [RC] QSHIFT Care 09/08/20 12:58 Ordered Oxygen Therapy [RC] PRN Care 09/08/20 12:58 Ordered Up With Assistance [RC] ASDIRECTED Care 09/08/20 12:58 Ordered VTE/DVT Education [RC] PER UNIT ROUTINE Care 09/08/20 12:58 Ordered Vital Signs [RC] Q4H Care 09/08/20 12:58 Ordered Regular Diet [DIET] Diet 09/08/20 Lunch Ordered BASIC METABOLIC PANEL,BMP [CHEM] AM Lab 09/09/20 05:11 Ordered CBC WITH AUTO DIFF [HEME] AM Lab 09/09/20 05:11 Ordered CULTURE BLOOD [BC] Stat Lab 09/08/20 10:25 Received CULTURE BLOOD [BC] Stat Lab 09/08/20 10:52 Received TANISHA PREP [MYC] Routine Lab 09/08/20 13:06 Ordered MISCELLANEOUS CULT [MREF] Routine Lab 09/08/20 13:06 Ordered RPR (SYPHILIS SERO) W/ RFLX [REF] Stat Lab 09/08/20 10:25 Received UA RFX NETTA AND CULT IF INDIC [URIN] Stat Lab 09/08/20 10:10 Ordered Acetaminophen [TylenoL] Med 09/08/20 12:58 Ordered 650 mg PO Q4H PRN Ondansetron [Zofran] Med 09/08/20 12:58 Ordered 4 mg IVPUSH Q4H PRN Pharmacy to Dose - Vancomycin Med 09/08/20 13:15 Ordered 1 dose .XX ASDIRECTED Sodium Chloride 0.9% [Saline Flush] Med 09/08/20 12:58 Ordered 2.5 ml FLUSH ASDIRECTED PRN Vancomycin 1 gm Med 09/08/20 10:15 Active Sodium Chloride 0.9% [Normal Saline (AdvBag)] 250 ml IV Q12H cefTRIAXone [Rocephin in Dextrose,Iso-Osm 1 GM/50 ML] 1 Med 09/09/20 10:00 Ordered gm Premix Bag 1 bag IV Q24H diphenhydrAMINE [Benadryl] Med 09/08/20 12:58 Ordered 25 mg PO Q4H PRN Blood Culture x2 Reflex Set [OM.PC] Stat Oth 09/08/20 10:10 Ordered Saline Lock Insert [OM.PC] Routine Oth 09/08/20 12:58 Ordered Sequential Compression Device [OM.PC] Per Unit Routine Oth 09/08/20 12:59 Ordered Resuscitation Status Routine Resus Stat 09/08/20 12:58 Ordered Medication Orders Acetaminophen (Acetaminophen 325 Mg Tab) 650 mg PO Q4H PRN PRN Reason: Pain (Mild 1-3)/fever Diphenhydramine HCl (Diphenhydramine 25 Mg Cap) 25 mg PO Q4H PRN PRN Reason: Itching Vancomycin HCl 1 gm/ Sodium (Chloride) 250 mls @ 166 mls/hr IV Q12H [facility] Last Admin: 09/08/20 11:00 Dose: 166 mls/hr Documented by: JOSEPH Ceftriaxone Sodium/Dextrose 1 (gm/ Premix) 50 mls @ 100 mls/hr IV Q24H [facility] Ondansetron HCl (Ondansetron 4 Mg/2 Ml Sdv) 4 mg IVPUSH Q4H PRN PRN Reason: Nausea Sodium Chloride (Sodium Chloride 0.9% 2.5 Ml Syringe) 2.5 ml FLUSH ASDIRECTED PRN PRN Reason: Keep Vein Open Vancomycin HCl (Pharmacy To Dose - Vancomycin) 1 dose .XX ASDIRECTED PENDING SALE TO [facility] Assessment/Plan Comment:: This 40-year-old male admitted with likely plant contact dermatitis with suspected superimposed cellulitis 1. Plant contact dermatitis with suspected superimposed cellulitis -Continue vancomycin and Rocephin -We will obtain culture and ATNISHA scraping -Benadryl as needed - hydrocortisone cream as needed itching -Cool compress as needed -Monitor in a.m. VTE prophylaxis: SCDs and ambulation CODE STATUS: Full code Dispo 1 to 2 days.
[2020-09-08] MEDS ORDERED: Hydrocortisone 1% Crm 30 GM Tube TOP PRN (13:30)
[2020-09-08] MEDS: VANCOmycin 1.75 GM/350 ML 1.75 GM in Premix Bag 1 BAG IV SCH (23:44)
[2020-09-09 06:22] LABS: BLOOD UREA NITROGEN,BUN 13 mg/dL (7.0-18.0); CARBON DIOXIDE,CO2 27.8 mmol/L (21.0-32.0); CHLORIDE,CL 103 mmol/L (98-107); GLUCOSE RANDOM 126 mg/dL (74-106); POTASSIUM,K 4.4 mmol/L (3.5-5.1); SODIUM,NA 139 mmol/L (136-148)
[2020-09-09] MEDS ORDERED: methylPREDNISolone Sodium Succinate 125 MG/2 ML SDV IVPUSH ONE (09:00)
--- NOTE | 2020-09-09 09:00 | PCM.PN ---
- General Info Date of Service: 09/09/20 Admission Dx/Problem (Free Text): Admission Diagnosis/Problem Admission Diagnosis/Problem Cellulitis Subjective Update: Feeling well this morning, erythema less bright today, itching continues to distal parts of rash. L posterior knee rash improved and less itching. Rash to abdomen also improved, but continues to itch. NO chest pain, SOB or fevers. No joint pain. Functional Status: Reports: Pain Controlled, Tolerating Diet, Ambulating, Urinating - Review of Systems General: Reports: No Symptoms. Denies: Weakness, Fatigue HEENT: Reports: No Symptoms. Denies: Headaches, Sore Throat Pulmonary: Reports: No Symptoms. Denies: Shortness of Breath Cardiovascular: Reports: No Symptoms. Denies: Chest Pain Gastrointestinal: Reports: No Symptoms. Denies: Abdominal Pain, Nausea, Vomiting Genitourinary: Reports: No Symptoms Skin: Reports: Rash Neurological: Reports: No Symptoms Psychiatric: Reports: No Symptoms - Patient Data Vitals - Most Recent: Last Vital Signs Temp 96.9 F 09/09/20 07:51 Pulse 78 09/09/20 07:51 Resp 20 09/09/20 07:51 BP 133/71 09/09/20 07:51 Pulse Ox 95 09/09/20 07:51 Weight - Most Recent: 116.029 kg I&O - Last 24 Hours: Intake & Output 09/08/20 09/09/20 09/09/20 22:59 06:59 14:59 Intake Total 1191 1410 Output Total 301 2000 Balance 890 -590 Lab Results Last 24 Hours: Laboratory Results - last 24 hr 09/08/20 09/08/20 09/08/20 Range/Units 10:25 10:25 10:25 WBC 9.34 (4.0-11.0) K/uL RBC 5.27 (4.50-5.90) M/uL Hgb 15.2 (13.0-17.0) g/dL Hct 45.4 (38.0-50.0) % MCV 86.1 (80.0-98.0) fL MCH 28.8 (27.0-32.0) pg MCHC 33.5 (31.0-37.0) g/dL RDW Std Deviation 40.8 (28.0-62.0) fl RDW Coeff of Geo 13 (11.0-15.0) % Plt Count 308 (150-400) K/uL MPV 9.50 (7.40-12.00) fL Neut % (Auto) 69.5 (48.0-80.0) % Lymph % (Auto) 16.4 (16.0-40.0) % [place] % (Auto) 6.3 (0.0-15.0) % Eos % (Auto) 7.5 H (0.0-7.0) % Baso % (Auto) 0.3 (0.0-1.5) % Neut # (Auto) 6.5 H (1.4-5.7) K/uL Lymph # (Auto) 1.5 (0.6-2.4) K/uL [place] # (Auto) 0.6 (0.0-0.8) K/uL Eos # (Auto) 0.7 (0.0-0.7) K/uL Baso # (Auto) 0.0 (0.0-0.1) K/uL Nucleated RBC % 0.0 /100WBC Nucleated RBCs # 0 K/uL INR 1.11 Sodium 138 (136-148) mmol/L Potassium 4.5 (3.5-5.1) mmol/L Chloride 103 (98-107) mmol/L Carbon Dioxide 31.4 (21.0-32.0) mmol/L BUN 13 (7.0-18.0) mg/dL Creatinine 1.2 (0.8-1.3) mg/dL Est Cr Clr Drug Dosing 84.49 mL/min Estimated GFR (MDRD) > 60.0 ml/min Glucose 101 (74-106) mg/dL Lactic Acid (0.4-2.0) mmol/L Calcium 8.9 (8.5-10.1) mg/dL Total Bilirubin 0.4 (0.2-1.0) mg/dL AST 23 (15-37) IU/L ALT 30 (14-63) IU/L Alkaline Phosphatase 72 (46-116) U/L Total Protein 7.3 (6.4-8.2) g/dL Albumin 3.6 (3.4-5.0) g/dL Globulin 3.7 (2.6-4.0) g/dL Albumin/Globulin Ratio 1.0 (0.9-1.6) Urine Color Urine Appearance Urine pH (5.0-8.0) Ur Specific [place] (1.001-1.035) Urine Protein (NEGATIVE) mg/dL Urine Glucose (UA) (NEGATIVE) mg/dL Urine Ketones (NEGATIVE) mg/dL Urine Occult Blood (NEGATIVE) Urine Nitrite (NEGATIVE) Urine Bilirubin (NEGATIVE) Urine Urobilinogen (<2.0) EU/dL Ur Leukocyte Esterase (NEGATIVE) SARS-CoV-2 RNA (GABRIELA) (NEGATIVE) 09/08/20 09/08/20 09/08/20 Range/Units 10:25 11:25 13:50 WBC (4.0-11.0) K/uL RBC (4.50-5.90) M/uL Hgb (13.0-17.0) g/dL Hct (38.0-50.0) % MCV (80.0-98.0) fL MCH (27.0-32.0) pg MCHC (31.0-37.0) g/dL RDW Std Deviation (28.0-62.0) fl RDW Coeff of Geo (11.0-15.0) % Plt Count (150-400) K/uL MPV (7.40-12.00) fL Neut % (Auto) (48.0-80.0) % Lymph % (Auto) (16.0-40.0) % [place] % (Auto) (0.0-15.0) % Eos % (Auto) (0.0-7.0) % Baso % (Auto) (0.0-1.5) % Neut # (Auto) (1.4-5.7) K/uL Lymph # (Auto) (0.6-2.4) K/uL [place] # (Auto) (0.0-0.8) K/uL Eos # (Auto) (0.0-0.7) K/uL Baso # (Auto) (0.0-0.1) K/uL Nucleated RBC % /100WBC Nucleated RBCs # K/uL INR Sodium (136-148) mmol/L Potassium (3.5-5.1) mmol/L Chloride (98-107) mmol/L Carbon Dioxide (21.0-32.0) mmol/L BUN (7.0-18.0) mg/dL Creatinine (0.8-1.3) mg/dL Est Cr Clr Drug Dosing mL/min Estimated GFR (MDRD) ml/min Glucose (74-106) mg/dL Lactic Acid 1.0 (0.4-2.0) mmol/L Calcium (8.5-10.1) mg/dL Total Bilirubin (0.2-1.0) mg/dL AST (15-37) IU/L ALT (14-63) IU/L Alkaline Phosphatase (46-116) U/L Total Protein (6.4-8.2) g/dL Albumin (3.4-5.0) g/dL Globulin (2.6-4.0) g/dL Albumin/Globulin Ratio (0.9-1.6) Urine Color YELLOW Urine Appearance CLEAR Urine pH 6.0 (5.0-8.0) Ur Specific [place] 1.025 (1.001-1.035) Urine Protein NEGATIVE (NEGATIVE) mg/dL Urine Glucose (UA) NEGATIVE (NEGATIVE) mg/dL Urine Ketones NEGATIVE (NEGATIVE) mg/dL Urine Occult Blood NEGATIVE (NEGATIVE) Urine Nitrite NEGATIVE (NEGATIVE) Urine Bilirubin NEGATIVE (NEGATIVE) Urine Urobilinogen 0.2 (<2.0) EU/dL Ur Leukocyte Esterase NEGATIVE (NEGATIVE) SARS-CoV-2 RNA (GABRIELA) NEGATIVE (NEGATIVE) 09/09/20 09/09/20 Range/Units 05:30 05:30 WBC 13.16 H (4.0-11.0) K/uL RBC 4.88 (4.50-5.90) M/uL Hgb 13.8 (13.0-17.0) g/dL Hct 41.9 (38.0-50.0) % MCV 85.9 (80.0-98.0) fL MCH 28.3 (27.0-32.0) pg MCHC 32.9 (31.0-37.0) g/dL RDW Std Deviation 40.1 (28.0-62.0) fl RDW Coeff of Geo 13 (11.0-15.0) % Plt Count 336 (150-400) K/uL MPV 9.70 (7.40-12.00) fL Neut % (Auto) 87.3 H (48.0-80.0) % Lymph % (Auto) 8.4 L (16.0-40.0) % [place] % (Auto) 4.0 (0.0-15.0) % Eos % (Auto) 0.2 (0.0-7.0) % Baso % (Auto) 0.1 (0.0-1.5) % Neut # (Auto) 11.5 H (1.4-5.7) K/uL Lymph # (Auto) 1.1 (0.6-2.4) K/uL [place] # (Auto) 0.5 (0.0-0.8) K/uL Eos # (Auto) 0.0 (0.0-0.7) K/uL Baso # (Auto) 0.0 (0.0-0.1) K/uL Nucleated RBC % 0.0 /100WBC Nucleated RBCs # 0 K/uL INR Sodium 139 (136-148) mmol/L Potassium 4.4 (3.5-5.1) mmol/L Chloride 103 (98-107) mmol/L Carbon Dioxide 27.8 (21.0-32.0) mmol/L BUN 13 (7.0-18.0) mg/dL Creatinine 0.9 (0.8-1.3) mg/dL Est Cr Clr Drug Dosing 116.20 mL/min Estimated GFR (MDRD) > 60.0 ml/min Glucose 126 H (74-106) mg/dL Lactic Acid (0.4-2.0) mmol/L Calcium 8.4 L (8.5-10.1) mg/dL Total Bilirubin (0.2-1.0) mg/dL AST (15-37) IU/L ALT (14-63) IU/L Alkaline Phosphatase (46-116) U/L Total Protein (6.4-8.2) g/dL Albumin (3.4-5.0) g/dL Globulin (2.6-4.0) g/dL Albumin/Globulin Ratio (0.9-1.6) Urine Color Urine Appearance Urine pH (5.0-8.0) Ur Specific [place] (1.001-1.035) Urine Protein (NEGATIVE) mg/dL Urine Glucose (UA) (NEGATIVE) mg/dL Urine Ketones (NEGATIVE) mg/dL Urine Occult Blood (NEGATIVE) Urine Nitrite (NEGATIVE) Urine Bilirubin (NEGATIVE) Urine Urobilinogen (<2.0) EU/dL Ur Leukocyte Esterase (NEGATIVE) SARS-CoV-2 RNA (GABRIELA) (NEGATIVE) Phani Results Last 24 Hours: Microbiology 09/08/20 13:10 TANISHA Preparation - Final Skin / Skin Scrapings - Knee, Right Med Orders - Current: Current Medications Acetaminophen (Acetaminophen 325 Mg Tab) 650 mg PO Q4H PRN PRN Reason: Pain (Mild 1-3)/fever Last Admin: 09/09/20 02:26 Dose: 650 mg Documented by: Diphenhydramine HCl (Diphenhydramine 25 Mg Cap) 25 mg PO Q4H PRN PRN Reason: Itching Last Admin: 09/09/20 02:28 Dose: 25 mg Documented by: Hydrocortisone (Hydrocortisone 1% Crm 30 Gm Tube) 0 gm TOP Q12HR PRN PRN Reason: Itching Last Admin: 09/08/20 14:42 Dose: 1 applic Documented by: Ceftriaxone Sodium/Dextrose 1 (gm/ Premix) 50 mls @ 100 mls/hr IV Q24H LIU Vancomycin HCl 1.75 gm/ Premix 350 mls @ 175 mls/hr IV Q12H LIU Last Admin: 09/08/20 23:44 Dose: 175 mls/hr Documented by: Ondansetron HCl (Ondansetron 4 Mg/2 Ml Sdv) 4 mg IVPUSH Q4H PRN PRN Reason: Nausea Sodium Chloride (Sodium Chloride 0.9% 2.5 Ml Syringe) 2.5 ml FLUSH ASDIRECTED PRN PRN Reason: Keep Vein Open Vancomycin HCl (Pharmacy To Dose - Vancomycin) 1 dose .XX ASDIRECTED LIU Discontinued Medications Diphenhydramine HCl (Diphenhydramine 50 Mg/Ml Sdv) 50 mg IVPUSH ONETIME ONE Stop: 09/08/20 10:21 Last Admin: 09/08/20 11:01 Dose: 50 mg Documented by: Ceftriaxone Sodium/Dextrose 1 (gm/ Premix) 50 mls @ 100 mls/hr IV ONETIME ONE Stop: 09/08/20 10:39 Last Admin: 09/08/20 10:59 Dose: 100 mls/hr Documented by: Vancomycin HCl 1 gm/ Sodium (Chloride) 250 mls @ 166 mls/hr IV Q12H LIU Last Admin: 09/08/20 11:00 Dose: 166 mls/hr Documented by: Methylprednisolone Sodium Succinate (Methylprednisolone Sodium Succinate 125 Mg/2 Ml Sdv) 125 mg IVPUSH ONETIME ONE Stop: 09/08/20 10:21 Last Admin: 09/08/20 11:01 Dose: 125 mg Documented by: Sodium Chloride (Sodium Chloride 0.9% 10 Ml Syringe) 10 ml FLUSH ASDIRECTED PRN PRN Reason: Keep Vein Open Last Admin: 09/08/20 11:06 Dose: 10 ml Documented by: Sodium Chloride (Sodium Chloride 0.9% 2.5 Ml Syringe) 2.5 ml FLUSH ASDIRECTED PRN PRN Reason: Keep Vein Open Last Admin: 09/08/20 11:05 Dose: 2.5 ml Documented by: - Exam General: Alert, Oriented, Cooperative, No Acute Distress Lungs: Clear to Auscultation, Normal Respiratory Effort Cardiovascular: Regular Rate, Regular Rhythm GI/Abdominal Exam: Normal Bowel Sounds, Soft, Non-Tender Extremities: Normal Inspection, Normal Range of Motion, Non-Tender, No Pedal Edema, Normal Capillary Refill Wound/Incisions: Drainage (yellow to clear drainage from vesicles on R knee.), Erythema Improving (to R and L knee. macular rash to trunk mildly improved. ) Neurological: No New Focal Deficit Psy/Mental Status: Alert, Normal Affect, Normal Mood - Patient Data Lab Results Last 24 hrs: Laboratory Results - last 24 hr 09/08/20 09/08/20 09/08/20 Range/Units 10:25 10:25 10:25 WBC 9.34 (4.0-11.0) K/uL RBC 5.27 (4.50-5.90) M/uL Hgb 15.2 (13.0-17.0) g/dL Hct 45.4 (38.0-50.0) % MCV 86.1 (80.0-98.0) fL MCH 28.8 (27.0-32.0) pg MCHC 33.5 (31.0-37.0) g/dL RDW Std Deviation 40.8 (28.0-62.0) fl RDW Coeff of Geo 13 (11.0-15.0) % Plt Count 308 (150-400) K/uL MPV 9.50 (7.40-12.00) fL Neut % (Auto) 69.5 (48.0-80.0) % Lymph % (Auto) 16.4 (16.0-40.0) % [place] % (Auto) 6.3 (0.0-15.0) % Eos % (Auto) 7.5 H (0.0-7.0) % Baso % (Auto) 0.3 (0.0-1.5) % Neut # (Auto) 6.5 H (1.4-5.7) K/uL Lymph # (Auto) 1.5 (0.6-2.4) K/uL [place] # (Auto) 0.6 (0.0-0.8) K/uL Eos # (Auto) 0.7 (0.0-0.7) K/uL Baso # (Auto) 0.0 (0.0-0.1) K/uL Nucleated RBC % 0.0 /100WBC Nucleated RBCs # 0 K/uL INR 1.11 Sodium 138 (136-148) mmol/L Potassium 4.5 (3.5-5.1) mmol/L Chloride 103 (98-107) mmol/L Carbon Dioxide 31.4 (21.0-32.0) mmol/L BUN 13 (7.0-18.0) mg/dL Creatinine 1.2 (0.8-1.3) mg/dL Est Cr Clr Drug Dosing 84.49 mL/min Estimated GFR (MDRD) > 60.0 ml/min Glucose 101 (74-106) mg/dL Lactic Acid (0.4-2.0) mmol/L Calcium 8.9 (8.5-10.1) mg/dL Total Bilirubin 0.4 (0.2-1.0) mg/dL AST 23 (15-37) IU/L ALT 30 (14-63) IU/L Alkaline Phosphatase 72 (46-116) U/L Total Protein 7.3 (6.4-8.2) g/dL Albumin 3.6 (3.4-5.0) g/dL Globulin 3.7 (2.6-4.0) g/dL Albumin/Globulin Ratio 1.0 (0.9-1.6) Urine Color Urine Appearance Urine pH (5.0-8.0) Ur Specific [place] (1.001-1.035) Urine Protein (NEGATIVE) mg/dL Urine Glucose (UA) (NEGATIVE) mg/dL Urine Ketones (NEGATIVE) mg/dL Urine Occult Blood (NEGATIVE) Urine Nitrite (NEGATIVE) Urine Bilirubin (NEGATIVE) Urine Urobilinogen (<2.0) EU/dL Ur Leukocyte Esterase (NEGATIVE) SARS-CoV-2 RNA (GABRIELA) (NEGATIVE) 09/08/20 09/08/20 09/08/20 Range/Units 10:25 11:25 13:50 WBC (4.0-11.0) K/uL RBC (4.50-5.90) M/uL Hgb (13.0-17.0) g/dL Hct (38.0-50.0) % MCV (80.0-98.0) fL MCH (27.0-32.0) pg MCHC (31.0-37.0) g/dL RDW Std Deviation (28.0-62.0) fl RDW Coeff of Geo (11.0-15.0) % Plt Count (150-400) K/uL MPV (7.40-12.00) fL Neut % (Auto) (48.0-80.0) % Lymph % (Auto) (16.0-40.0) % [place] % (Auto) (0.0-15.0) % Eos % (Auto) (0.0-7.0) % Baso % (Auto) (0.0-1.5) % Neut # (Auto) (1.4-5.7) K/uL Lymph # (Auto) (0.6-2.4) K/uL [place] # (Auto) (0.0-0.8) K/uL Eos # (Auto) (0.0-0.7) K/uL Baso # (Auto) (0.0-0.1) K/uL Nucleated RBC % /100WBC Nucleated RBCs # K/uL INR Sodium (136-148) mmol/L Potassium (3.5-5.1) mmol/L Chloride (98-107) mmol/L Carbon Dioxide (21.0-32.0) mmol/L BUN (7.0-18.0) mg/dL Creatinine (0.8-1.3) mg/dL Est Cr Clr Drug Dosing mL/min Estimated GFR (MDRD) ml/min Glucose (74-106) mg/dL Lactic Acid 1.0 (0.4-2.0) mmol/L Calcium (8.5-10.1) mg/dL Total Bilirubin (0.2-1.0) mg/dL AST (15-37) IU/L ALT (14-63) IU/L Alkaline Phosphatase (46-116) U/L Total Protein (6.4-8.2) g/dL Albumin (3.4-5.0) g/dL Globulin (2.6-4.0) g/dL Albumin/Globulin Ratio (0.9-1.6) Urine Color YELLOW Urine Appearance CLEAR Urine pH 6.0 (5.0-8.0) Ur Specific [place] 1.025 (1.001-1.035) Urine Protein NEGATIVE (NEGATIVE) mg/dL Urine Glucose (UA) NEGATIVE (NEGATIVE) mg/dL Urine Ketones NEGATIVE (NEGATIVE) mg/dL Urine Occult Blood NEGATIVE (NEGATIVE) Urine Nitrite NEGATIVE (NEGATIVE) Urine Bilirubin NEGATIVE (NEGATIVE) Urine Urobilinogen 0.2 (<2.0) EU/dL Ur Leukocyte Esterase NEGATIVE (NEGATIVE) SARS-CoV-2 RNA (GABRIELA) NEGATIVE (NEGATIVE) 09/09/20 09/09/20 Range/Units 05:30 05:30 WBC 13.16 H (4.0-11.0) K/uL RBC 4.88 (4.50-5.90) M/uL Hgb 13.8 (13.0-17.0) g/dL Hct 41.9 (38.0-50.0) % MCV 85.9 (80.0-98.0) fL MCH 28.3 (27.0-32.0) pg MCHC 32.9 (31.0-37.0) g/dL RDW Std Deviation 40.1 (28.0-62.0) fl RDW Coeff of Geo 13 (11.0-15.0) % Plt Count 336 (150-400) K/uL MPV 9.70 (7.40-12.00) fL Neut % (Auto) 87.3 H (48.0-80.0) % Lymph % (Auto) 8.4 L (16.0-40.0) % [place] % (Auto) 4.0 (0.0-15.0) % Eos % (Auto) 0.2 (0.0-7.0) % Baso % (Auto) 0.1 (0.0-1.5) % Neut # (Auto) 11.5 H (1.4-5.7) K/uL Lymph # (Auto) 1.1 (0.6-2.4) K/uL [place] # (Auto) 0.5 (0.0-0.8) K/uL Eos # (Auto) 0.0 (0.0-0.7) K/uL Baso # (Auto) 0.0 (0.0-0.1) K/uL Nucleated RBC % 0.0 /100WBC Nucleated RBCs # 0 K/uL INR Sodium 139 (136-148) mmol/L Potassium 4.4 (3.5-5.1) mmol/L Chloride 103 (98-107) mmol/L Carbon Dioxide 27.8 (21.0-32.0) mmol/L BUN 13 (7.0-18.0) mg/dL Creatinine 0.9 (0.8-1.3) mg/dL Est Cr Clr Drug Dosing 116.20 mL/min Estimated GFR (MDRD) > 60.0 ml/min Glucose 126 H (74-106) mg/dL Lactic Acid (0.4-2.0) mmol/L Calcium 8.4 L (8.5-10.1) mg/dL Total Bilirubin (0.2-1.0) mg/dL AST (15-37) IU/L ALT (14-63) IU/L Alkaline Phosphatase (46-116) U/L Total Protein (6.4-8.2) g/dL Albumin (3.4-5.0) g/dL Globulin (2.6-4.0) g/dL Albumin/Globulin Ratio (0.9-1.6) Urine Color Urine Appearance Urine pH (5.0-8.0) Ur Specific [place] (1.001-1.035) Urine Protein (NEGATIVE) mg/dL Urine Glucose (UA) (NEGATIVE) mg/dL Urine Ketones (NEGATIVE) mg/dL Urine Occult Blood (NEGATIVE) Urine Nitrite (NEGATIVE) Urine Bilirubin (NEGATIVE) Urine Urobilinogen (<2.0) EU/dL Ur Leukocyte Esterase (NEGATIVE) SARS-CoV-2 RNA (GABRIELA) (NEGATIVE) Result Diagrams: 09/09/20 05:30 09/09/20 05:30 Phani Results Last 24 hrs: Microbiology 09/08/20 13:10 TANISHA Preparation - Final Skin / Skin Scrapings - Knee, Right Sepsis Event Note - Evaluation Sepsis Screening Result: No Definite Risk - Focused Exam Vital Signs: Vital Signs Temp Pulse Resp BP Pulse Ox 09/09/20 07:51 96.9 F 78 20 133/71 95 09/09/20 05:00 98 F 78 18 121/64 96 09/08/20 23:42 97.4 F 76 18 129/62 96 - Problem List & Annotations (1) Contact dermatitis and eczema due to plant SNOMED Code(s): 260010313 Code(s): L24.7 - IRRITANT CONTACT DERMATITIS DUE TO PLANTS, EXCEPT FOOD Status: Acute Current Visit: Yes (2) Cellulitis SNOMED Code(s): 952076752 Code(s): L03.90 - CELLULITIS, UNSPECIFIED Status: Acute Current Visit: Yes Qualifiers: Site of cellulitis: extremity Site of cellulitis of extremity: lower extremity Laterality: right Qualified Code(s): L03.115 - Cellulitis of right lower limb (3) Tobacco abuse SNOMED Code(s): 235512658 Code(s): Z72.0 - TOBACCO USE Status: Chronic Current Visit: Yes (4) Obesity SNOMED Code(s): 856746573, 724588108 Code(s): E66.9 - OBESITY, UNSPECIFIED Status: Chronic Current Visit: Yes - Problem List Review Problem List Initiated/Reviewed/Updated: Yes - My Orders Last 24 Hours: My Active Orders 09/08/20 Lunch Regular Diet [DIET] 09/08/20 12:58 Intake and Output [RC] Q12H Oxygen Therapy [RC] PRN Up With Assistance [RC] ASDIRECTED VTE/DVT Education [RC] PER UNIT ROUTINE Vital Signs [RC] Q4H Acetaminophen [TylenoL] 650 mg PO Q4H PRN Ondansetron [Zofran] 4 mg IVPUSH Q4H PRN diphenhydrAMINE [Benadryl] 25 mg PO Q4H PRN Saline Lock Insert [OM.PC] Routine Resuscitation Status Routine 09/08/20 12:59 Sequential Compression Device [OM.PC] Per Unit Routine 09/08/20 13:00 Antiembolic Devices [RC] PER UNIT ROUTINE Sodium Chloride 0.9% [Saline Flush] 2.5 ml FLUSH ASDIRECTED PRN 09/08/20 13:10 MISCELLANEOUS CULT [MREF] Routine 09/08/20 13:15 Pharmacy to Dose - Vancomycin 1 dose .XX ASDIRECTED 09/08/20 13:30 Hydrocortisone [Hydrocortisone 1% Crm] See Dose Instructions TOP Q12HR PRN 09/08/20 23:00 VANCOmycin 1.75 GM/350 ML 1.75 gm Premix Bag 1 bag IV Q12H 09/09/20 09:00 methylPREDNISolone Sod Succ [Solu-MEDROL] 125 mg IVPUSH ONETIME ONE 09/09/20 10:00 cefTRIAXone [Rocephin in Dextrose,Iso-Osm 1 GM/50 ML] 1 gm Premix Bag 1 bag IV Q24H - Plan Plan:: This 40-year-old male admitted with likely plant contact dermatitis with suspected superimposed cellulitis 1. Plant contact dermatitis with suspected superimposed cellulitis -Continue vancomycin and Rocephin -TANISHA negative. Wound culture pending. BC negative x 1 -Benadryl as needed - hydrocortisone cream as needed itching -Cool compress as needed -Leukocytosis likely reactive to steroid dose. - WIll give another dose of steroids x 1 today, cellulitis less likely. VTE prophylaxis: SCDs and ambulation CODE STATUS: Full code Dispo 1 to 2 days.
[2020-09-09] MEDS: cefTRIAXone 1 GM in Premix Bag 1 BAG IV SCH (09:47)
[2020-09-09] MEDS: VANCOmycin 1.75 GM/350 ML 1.75 GM in Premix Bag 1 BAG IV SCH ×2 (10:44→22:59)
[2020-09-09] MEDS ORDERED: cefTRIAXone 1 GM in Premix Bag 1 BAG IV SCH (11:00)
[2020-09-10 06:57] LABS: BLOOD UREA NITROGEN,BUN 15 mg/dL (7.0-18.0); CARBON DIOXIDE,CO2 28.2 mmol/L (21.0-32.0); CHLORIDE,CL 104 mmol/L (98-107); GLUCOSE RANDOM 104 mg/dL (74-106); POTASSIUM,K 4.5 mmol/L (3.5-5.1); SODIUM,NA 139 mmol/L (136-148)
[2020-09-10] MEDS: cefTRIAXone 1 GM in Premix Bag 1 BAG IV SCH (10:22)
--- NOTE | 2020-09-10 13:50 | PCM.DCSUM1 ---
Discharge Summary - Hospital Course Free Text/Narrative:: 40-year-old male presented to the ER on 09-08-20 with complaints of skin rash on his lower extremities that extends up to his abdomen. He reports that he was hiking in the [facility] [place] to weeks ago approximately with his brother and their families. He reports that him and his brother were climbing a river bank to obtain shoe that was thrown and may have come in contact with poison jenny or stinging tj, both the patient and his brother began to have symptoms of a rash to his lower legs and believed it would be from poison jenny. Patient denied tick bite, insect or animal bite. Patient did go to the walk-in clinic on 09/05/2020 where he was given order steroid injection with encouragement to continue Benadryl and topical hydrocortisone. He reports after this the rash spread to his trunk posterior and anteriorly but sparing groin and genitals. At admission patient denied fevers, chills, myalgias rigors no neck pain, back pain, shortness of breath, palpitations or cough. He denies any abdominal pain nausea vomiting or diarrhea. He denies any black or bloody bowel movements. He denies ever having a thing like this in the past. Denies any history of allergies that he is aware of besides penicillins. In the ER no leukocytosis noted. Eosinophil percentage elevated 7.5. INR 1.11. BMP within normal limits glucose normal Covid swab negative. Venous Doppler of right lower extremity obtained which is negative. In the ER he was treated with Solu-Medrol Benadryl and IV fluids. He was also treated with Rocephin and vancomycin for possible superimposed bacterial infection. Patient to be admitted with suspected cellulitis secondary to superimposed bacterial infection from contact dermatitis likely from a plant. Patient was treated for suspected contact dermatitis with possible cellulitis. Patient was treated with vancomycin and Rocephin, Benadryl as needed, hydrocortisone cream topical for itching. Patient's TANISHA scraping came back negative. No organisms noted on Gram stain. Patient discharged home on doxycycline, Benadryl, hydrocortisone topical cream as needed for itching. Time of discharge patient was afebrile, denied fever, chills, denies any significant pain to his right lower extremity.. Patient sta lorrie his rash has been improving and is confident that he can manage his condition at home. - Discharge Data Discharge Date: 09/10/20 Discharge Disposition: Home, Self-Care 01 Condition: Stable - Referral to Home Health Primary Care Physician: PCP None - Patient Instructions Diet: Usual Diet as Tolerated Activity: As Tolerated Notify Provider of: Fever, Increased Pain, Swelling and Redness, Drainage Other/Special Instructions: REPORT ANY NEW PAIN, ITCHING, SKIN DISCOMFORT, FEVER, CHILLS TO PCP. FOR SEVERE PAIN, SWELLING, INCREASED REDNESS, REPORT TO THE ED. - Discharge Plan *PRESCRIPTION DRUG MONITORING PROGRAM REVIEWED*: Not Applicable *COPY OF PRESCRIPTION DRUG MONITORING REPORT IN PATIENT EBKA: Not Applicable Prescriptions/Med Rec: diphenhydrAMINE [Benadryl] 25 mg PO Q24H PRN #6 cap PRN Reason: Itching Doxycycline Hyclate 100 mg PO BID #14 capsule Hydrocortisone [Hydrocortisone 1% Crm] 28.4 gm TOP ASDIRECTED PRN #1 crm PRN Reason: Itching Home Medications: Home Meds Doxycycline Hyclate 100 mg PO BID #14 capsule 09/10/20 [Rx] Hydrocortisone [Hydrocortisone 1% Crm] 28.4 gm TOP ASDIRECTED PRN #1 crm 09/10/20 [Rx] diphenhydrAMINE [Benadryl] 25 mg PO Q24H PRN #6 cap 09/10/20 [Rx] Patient Handouts: Cellulitis, Adult, Atopic Dermatitis, Hydrocortisone skin cream, ointment, lotion, or solution, Rash, Adult, Diphenhydramine capsules or tablets, Doxycycline tablets or capsules Referrals: PCP,None [Primary Care Provider] - - Discharge Summary/Plan Comment DC Time >30 min.: Yes - General Info Date of Service: 09/10/20 - Review of Systems General: Denies: Fever, Malaise, Chills Pulmonary: Denies: Shortness of Breath, Cough Cardiovascular: Denies: Chest Pain Gastrointestinal: Denies: Abdominal Pain, Nausea, Vomiting Musculoskeletal: Denies: Leg Pain Neurological: Denies: Confusion, Dizziness, Headache - Patient Data Vitals - Most Recent: Last Vital Signs Temp 97.3 F 09/10/20 07:45 Pulse 75 09/10/20 07:45 Resp 17 09/10/20 07:45 BP 137/77 09/10/20 07:45 Pulse Ox 95 09/10/20 07:45 Weight - Most Recent: 255 lb 12.8 oz I&O - Last 24 hours: Intake & Output 09/09/20 09/10/20 09/10/20 22:59 06:59 14:59 Intake Total 1250 1300 800 Output Total 1552 2250 700 Balance -302 -950 100 Lab Results - Last 24 hrs: Laboratory Results - last 24 hr 09/10/20 09/10/20 Range/Units 06:25 06:25 WBC 14.95 H (4.0-11.0) K/uL RBC 4.88 (4.50-5.90) M/uL Hgb 13.7 (13.0-17.0) g/dL Hct 42.2 (38.0-50.0) % MCV 86.5 (80.0-98.0) fL MCH 28.1 (27.0-32.0) pg MCHC 32.5 (31.0-37.0) g/dL RDW Std Deviation 40.7 (28.0-62.0) fl RDW Coeff of Geo 13 (11.0-15.0) % Plt Count 342 (150-400) K/uL MPV 9.60 (7.40-12.00) fL Neut % (Auto) 77.4 (48.0-80.0) % Lymph % (Auto) 14.6 L (16.0-40.0) % [place] % (Auto) 6.0 (0.0-15.0) % Eos % (Auto) 1.9 (0.0-7.0) % Baso % (Auto) 0.1 (0.0-1.5) % Neut # (Auto) 11.6 H (1.4-5.7) K/uL Lymph # (Auto) 2.2 (0.6-2.4) K/uL [place] # (Auto) 0.9 H (0.0-0.8) K/uL Eos # (Auto) 0.3 (0.0-0.7) K/uL Baso # (Auto) 0.0 (0.0-0.1) K/uL Nucleated RBC % 0.0 /100WBC Nucleated RBCs # 0 K/uL Sodium 139 (136-148) mmol/L Potassium 4.5 (3.5-5.1) mmol/L Chloride 104 (98-107) mmol/L Carbon Dioxide 28.2 (21.0-32.0) mmol/L BUN 15 (7.0-18.0) mg/dL Creatinine 0.9 (0.8-1.3) mg/dL Est Cr Clr Drug Dosing 116.20 mL/min Estimated GFR (MDRD) > 60.0 ml/min Glucose 104 (74-106) mg/dL Calcium 8.5 (8.5-10.1) mg/dL NETTA Results - Last 24 hrs: Microbiology 09/08/20 13:10 Gram Stain - Final Knee, Right 09/08/20 10:52 Aerobic Blood Culture - Preliminary Blood - Venous - Lab Draw NO GROWTH AFTER 2 DAYS Anaerobic Blood Culture - Preliminary NO GROWTH AFTER 2 DAYS 09/08/20 10:25 Aerobic Blood Culture - Preliminary Blood - Venous NO GROWTH AFTER 2 DAYS Anaerobic Blood Culture - Preliminary NO GROWTH AFTER 2 DAYS Med Orders - Current: Current Medications Discontinued Medications Acetaminophen (Acetaminophen 325 Mg Tab) 650 mg PO Q4H PRN PRN Reason: Pain (Mild 1-3)/fever Last Admin: 09/09/20 02:26 Dose: 650 mg Documented by: Diphenhydramine HCl (Diphenhydramine 50 Mg/Ml Sdv) 50 mg IVPUSH ONETIME ONE Stop: 09/08/20 10:21 Last Admin: 09/08/20 11:01 Dose: 50 mg Documented by: Diphenhydramine HCl (Diphenhydramine 25 Mg Cap) 25 mg PO Q4H PRN PRN Reason: Itching Last Admin: 09/09/20 02:28 Dose: 25 mg Documented by: Hydrocortisone (Hydrocortisone 1% Crm 30 Gm Tube) 0 gm TOP Q12HR PRN PRN Reason: Itching Last Admin: 09/08/20 14:42 Dose: 1 applic Documented by: Ceftriaxone Sodium/Dextrose 1 (gm/ Premix) 50 mls @ 100 mls/hr IV ONETIME ONE Stop: 09/08/20 10:39 Last Admin: 09/08/20 10:59 Dose: 100 mls/hr Documented by: Vancomycin HCl 1 gm/ Sodium (Chloride) 250 mls @ 166 mls/hr IV Q12H [facility] Last Admin: 09/08/20 11:00 Dose: 166 mls/hr Documented by: Ceftriaxone Sodium/Dextrose 1 (gm/ Premix) 50 mls @ 100 mls/hr IV Q24H [facility] Last Admin: 09/10/20 10:22 Dose: 100 mls/hr Documented by: Vancomycin HCl 1.75 gm/ Premix 350 mls @ 175 mls/hr IV Q12H [facility] Last Admin: 09/09/20 22:59 Dose: 175 mls/hr Documented by: Methylprednisolone Sodium Succinate (Methylprednisolone Sodium Succinate 125 Mg/2 Ml Sdv) 125 mg IVPUSH ONETIME ONE Stop: 09/08/20 10:21 Last Admin: 09/08/20 11:01 Dose: 125 mg Documented by: Methylprednisolone Sodium Succinate (Methylprednisolone Sodium Succinate 125 Mg/2 Ml Sdv) 125 mg IVPUSH ONETIME ONE Stop: 09/09/20 09:01 Last Admin: 09/09/20 09:29 Dose: 125 mg Documented by: Ondansetron HCl (Ondansetron 4 Mg/2 Ml Sdv) 4 mg IVPUSH Q4H PRN PRN Reason: Nausea Sodium Chloride (Sodium Chloride 0.9% 10 Ml Syringe) 10 ml FLUSH ASDIRECTED PRN PRN Reason: Keep Vein Open Last Admin: 09/08/20 11:06 Dose: 10 ml Documented by: Sodium Chloride (Sodium Chloride 0.9% 2.5 Ml Syringe) 2.5 ml FLUSH ASDIRECTED PRN PRN Reason: Keep Vein Open Last Admin: 09/08/20 11:05 Dose: 2.5 ml Documented by: Sodium Chloride (Sodium Chloride 0.9% 2.5 Ml Syringe) 2.5 ml FLUSH ASDIRECTED PRN PRN Reason: Keep Vein Open Vancomycin HCl (Pharmacy To Dose - Vancomycin) 1 dose .XX ASDIRECTED [facility] - Exam General: Reports: Alert, Oriented Lungs: Reports: Clear to Auscultation, Normal Respiratory Effort Cardiovascular: Reports: Regular Rate, Regular Rhythm GI/Abdominal Exam: Non-Tender Extremities: Non-Tender Skin: Reports: Other (area of suspected contact dermatitis noted on left leg, with a rash on abdomen and back. Improved from admisision. )
== END 2020-09-10 11:18 | disposition home or self-care (01) | DRG 385 ==
LOC: MW.ED 09:37 → MW.MS 11:33
PROVIDERS: ADMIT Internal Medicine; ATTEND Internal Medicine
DX: L24.7 Irritant contact dermatitis due to plants, except food (principal); L03.115 Cellulitis of right lower limb; E66.9 Obesity, unspecified; Z20.822 Contact with and (suspected) exposure to COVID-19; Z72.0 Tobacco use; Z79.899 Other long term (current) drug therapy; Z88.0 Allergy status to penicillin; Z68.35 Body mass index [BMI] 35.0-35.9, adult
CPT/HCPCS: 36415; 80048; 80053; 81003; 83605; 85025; 85610; 86592; 87040; 87070; 87077; 87186; 87205; 87220; 93971-26-RT; 93971-RT; A9270-GY; J0696; J1200; J2930; J3370; J7050; U0002